=== PATIENT | female | born 1990 | race Caucasian/White ===

== ENCOUNTER 2018-05-10 07:51 | Emergency (ER) | payer MEDICAID ==
[2018-05-10] MEDS ORDERED: NACL 0.9% 500 ML 500 ML IV ONE (08:26)
[2018-05-10 08:54] LABS: Basophils % (Auto) 0.3 % (0.0-1.8); Eosinophils # (Auto) 0.2 K/mm3 (0.0-0.4); Eosinophils % (Auto) 1.6 % (0.0-4.3); Hematocrit 36.3 % (30.3-42.9); Hemoglobin 12.2 gm/dl (10.1-14.3); Lymphocytes # (Auto) 1.1 K/mm3 (1.2-5.4); Lymphocytes % (Auto) 10.5 % (13.4-35.0); Mean Corpuscular HGB Conc 34 % (30-34); Mean Corpuscular Volume 81 fl (79-97); Monocytes # (Auto) 0.6 K/mm3 (0.0-0.8); Monocytes % (Auto) 5.5 % (0.0-7.3); Platelet Count 339 K/mm3 (140-440); Red Cell Distribution Width 13.5 % (13.2-15.2)
[2018-05-10] MEDS ORDERED: NACL 0.9% 1000 ML 1,000 ML IV ONE (08:56)
--- NOTE | 2018-05-10 09:04 | Emergency Department Report ---
ED General Adult HPI - General Chief complaint: Arrhythmia/Palpitations Stated complaint: 22 WKS /CHEST PAIN/HIGH HEART RATE Time Seen by Provider: 05/10/18 08:36 Source: patient Mode of arrival: Ambulatory Limitations: No Limitations - History of Present Illness Initial comments: This is a 28-year-old female who came from [place] to visit family she states last Friday. She is about 22 weeks . She was told that she had gestational diabetes and I'll. She is not placed on medicine. She states that she was told that she had to get a "level II ultrasound". This is her first . Yesterday she developed shortness of breath. She felt like her heart was racing. She's only had occasional cough. She denies chest pain. She denies leg pain or swelling. She doesn't report any other symptoms. Patient denies being on any medicines or having any prior medical problems. -: Gradual, hour(s) Consistency: constant (heart racing not short of breath at the moment) Improves with: none Worsens with: none Associated Symptoms: denies other symptoms, fever/chills (possibly some chills), shortness of breath Treatments Prior to Arrival: none - Related Data Previous Rx's Medication Instructions Recorded Last Taken Type cefUROXime [Ceftin] 250 mg PO Q12H #14 tablet 05/10/18 Unknown Rx Allergies Allergy/AdvReac Type Severity Reaction Status Date / Time No Known Allergies Allergy Verified 05/10/18 08:39 ED Review of Systems ROS: Stated complaint: 22 WKS /CHEST PAIN/HIGH HEART RATE Other details as noted in HPI Constitutional: chills. denies: fever Eyes: denies: eye pain, eye discharge, vision change ENT: denies: ear pain, throat pain Respiratory: shortness of breath. denies: cough, wheezing Cardiovascular: palpitations (heart racing). denies: chest pain Endocrine: no symptoms reported Gastrointestinal: denies: abdominal pain, nausea, diarrhea Genitourinary: denies: urgency, dysuria, discharge Musculoskeletal: denies: back pain, joint swelling, arthralgia Skin: denies: rash, lesions Neurological: denies: headache, weakness, paresthesias Psychiatric: denies: anxiety, depression Hematological/Lymphatic: denies: easy bleeding, easy bruising ED Past Medical Hx - Past Medical History Hx Diabetes: Yes (GESTATION) - Surgical History Past Surgical History?: No - Social History Smoking Status: Never Smoker Substance Use Type: None - Medications Home Medications: Home Medications Medication Instructions Recorded Confirmed Last Taken Type cefUROXime [Ceftin] 250 mg PO Q12H #14 tablet 05/10/18 Unknown Rx ED Physical Exam - General Limitations: No Limitations General appearance: alert, in no apparent distress, obese - Head Head exam: Present: atraumatic, normocephalic - Eye Eye exam: Present: normal appearance. Absent: scleral icterus - ENT ENT exam: Present: mucous membranes moist - Neck Neck exam: Present: normal inspection. Absent: tenderness, meningismus - Respiratory Respiratory exam: Present: normal lung sounds bilaterally. Absent: respiratory distress - Cardiovascular Cardiovascular Exam: Present: regular rate, normal rhythm, tachycardia. Absent: systolic murmur, diastolic murmur, rubs, gallop - GI/Abdominal GI/Abdominal exam: Present: soft, distended (consistent with gestational age), normal bowel sounds. Absent: tenderness, guarding, rebound, rigid - Extremities Exam Extremities exam: Present: normal inspection, normal capillary refill. Absent: pedal edema, joint swelling, calf tenderness - Back Exam Back exam: Present: normal inspection. Absent: CVA tenderness (R), CVA tenderness (L) - Neurological Exam Neurological exam: Present: alert, oriented X3, CN II-XII intact. Absent: motor sensory deficit - Psychiatric Psychiatric exam: Present: normal affect, normal mood - Skin Skin exam: Present: warm, dry, intact, normal color. Absent: rash ED Course Vital Signs 05/10/18 05/10/18 05/10/18 08:13 08:16 08:30 Pulse Rate 118 H 124 H Respiratory 28 H 18 15 Rate Blood Pressure 131/89 136/85 O2 Sat by Pulse 96 97 Oximetry 05/10/18 05/10/18 05/10/18 08:46 09:00 09:48 Pulse Rate 105 H 119 H Respiratory 20 21 Rate Blood Pressure 136/85 136/85 133/88 O2 Sat by Pulse 98 98 97 Oximetry 05/10/18 05/10/18 05/10/18 10:00 10:15 10:30 Pulse Rate 112 H 111 H 114 H Respiratory 16 23 20 Rate Blood Pressure 117/70 131/85 118/78 O2 Sat by Pulse 98 98 97 Oximetry - Reevaluation(s) Reevaluation #1: I explained to this patient the need for chest x-ray. I explained to the differential diagnosis to include pulmonary embolism. She has mental capacity which appears to be normal. Now withstanding this, she continues to refuse chest x-ray. I have told her that she needs extensive workup of her shortness of breath and tachycardia and 22 week gestation. She is not cooperating with medical screening. I will discuss this with the transplant rn. 05/10/18 10:42 Reevaluation #2: I spoke with Dr. Ana Maria Taylor. We went over the patient's workup in progress so far. Dr. Taylor reiterates the need for a chest x-ray. She states that she is willing to admit the patient for further care and evaluation if she does have a chest x-ray. Otherwise, if she is refusing further workup, she recommends that the patient sign out AGAINST MEDICAL ADVICE. 05/10/18 11:26 Reevaluation #3: Patient declines further workup. She states that she would rather leave. She is going to sign out AGAINST MEDICAL ADVICE. Her urine is equivocal. However I will give her prescription for Ceftin. I will give her the name of the transplant rn action installer Dr. Talyor. We have discussed the case. Patient is well aware of that we have not excluded a variety of potentially life-threatening illnesses both to her and the fetus. She has adequate mental capacity to refuse further care. She has done so. 05/10/18 11:54 ED Medical Decision Making - Lab Data Result diagrams: 05/10/18 08:41 05/10/18 08:41 Laboratory Results - last 24 hr 05/10/18 05/10/18 05/10/18 08:41 08:41 08:41 WBC 10.2 RBC 4.50 Hgb 12.2 Hct 36.3 MCV 81 MCH 27 L MCHC 34 RDW 13.5 Plt Count 339 Lymph % (Auto) 10.5 L [place] % (Auto) 5.5 Eos % (Auto) 1.6 Baso % (Auto) 0.3 Lymph # 1.1 L [place] # 0.6 Eos # 0.2 Baso # 0.0 Seg Neutrophils % 82.1 H Seg Neutrophils # 8.4 H APTT 26.6 D-Dimer Sodium Potassium Chloride Carbon Dioxide Anion Gap BUN Creatinine Estimated GFR BUN/Creatinine Ratio Glucose Lactic Acid Uric Acid 5.2 Calcium Magnesium Total Bilirubin Direct Bilirubin Indirect Bilirubin AST ALT Alkaline Phosphatase Total Creatine Kinase CK-MB (CK-2) CK-MB (CK-2) Rel Index NT-Pro-B Natriuret Pep Total Protein Albumin Albumin/Globulin Ratio Lipase 13 TSH Free T4 05/10/18 05/10/18 05/10/18 08:41 08:41 08:41 WBC RBC Hgb Hct MCV MCH MCHC RDW Plt Count Lymph % (Auto) [place] % (Auto) Eos % (Auto) Baso % (Auto) Lymph # [place] # Eos # Baso # Seg Neutrophils % Seg Neutrophils # APTT D-Dimer 419.05 H Sodium 136 L Potassium 4.1 Chloride 101.2 Carbon Dioxide 18 L Anion Gap 21 BUN 6 L Creatinine 0.4 L Estimated GFR > 60 BUN/Creatinine Ratio 15 Glucose 124 H Lactic Acid Uric Acid Calcium 9.3 Magnesium 1.80 Total Bilirubin 0.20 Direct Bilirubin < 0.2 Indirect Bilirubin 0.0 AST 67 H ALT 28 Alkaline Phosphatase 71 Total Creatine Kinase 41 CK-MB (CK-2) < 1.0 CK-MB (CK-2) Rel Index 2.4 NT-Pro-B Natriuret Pep < 5 Total Protein 7.2 Albumin 3.7 L Albumin/Globulin Ratio 1.1 Lipase TSH 1.530 Free T4 0.86 05/10/18 09:04 WBC RBC Hgb Hct MCV MCH MCHC RDW Plt Count Lymph % (Auto) [place] % (Auto) Eos % (Auto) Baso % (Auto) Lymph # [place] # Eos # Baso # Seg Neutrophils % Seg Neutrophils # APTT D-Dimer Sodium Potassium Chloride Carbon Dioxide Anion Gap BUN Creatinine Estimated GFR BUN/Creatinine Ratio Glucose Lactic Acid 1.70 Uric Acid Calcium Magnesium Total Bilirubin Direct Bilirubin Indirect Bilirubin AST ALT Alkaline Phosphatase Total Creatine Kinase CK-MB (CK-2) CK-MB (CK-2) Rel Index NT-Pro-B Natriuret Pep Total Protein Albumin Albumin/Globulin Ratio Lipase TSH Free T4 Laboratory Results - last 24 hr 05/10/18 05/10/18 05/10/18 08:41 08:41 08:41 WBC 10.2 RBC 4.50 Hgb 12.2 Hct 36.3 MCV 81 MCH 27 L MCHC 34 RDW 13.5 Plt Count 339 Lymph % (Auto) 10.5 L [place] % (Auto) 5.5 Eos % (Auto) 1.6 Baso % (Auto) 0.3 Lymph # 1.1 L [place] # 0.6 Eos # 0.2 Baso # 0.0 Seg Neutrophils % 82.1 H Seg Neutrophils # 8.4 H APTT 26.6 D-Dimer Sodium Potassium Chloride Carbon Dioxide Anion Gap BUN Creatinine Estimated GFR BUN/Creatinine Ratio Glucose Lactic Acid Uric Acid 5.2 Calcium Magnesium Total Bilirubin Direct Bilirubin Indirect Bilirubin AST ALT Alkaline Phosphatase Total Creatine Kinase CK-MB (CK-2) CK-MB (CK-2) Rel Index NT-Pro-B Natriuret Pep Total Protein Albumin Albumin/Globulin Ratio Lipase 13 TSH Free T4 05/10/18 05/10/18 05/10/18 08:41 08:41 08:41 WBC RBC Hgb Hct MCV MCH MCHC RDW Plt Count Lymph % (Auto) [place] % (Auto) Eos % (Auto) Baso % (Auto) Lymph # [place] # Eos # Baso # Seg Neutrophils % Seg Neutrophils # APTT D-Dimer 419.05 H Sodium 136 L Potassium 4.1 Chloride 101.2 Carbon Dioxide 18 L Anion Gap 21 BUN 6 L Creatinine 0.4 L Estimated GFR > 60 BUN/Creatinine Ratio 15 Glucose 124 H Lactic Acid Uric Acid Calcium 9.3 Magnesium 1.80 Total Bilirubin 0.20 Direct Bilirubin < 0.2 Indirect Bilirubin 0.0 AST 67 H ALT 28 Alkaline Phosphatase 71 Total Creatine Kinase 41 CK-MB (CK-2) < 1.0 CK-MB (CK-2) Rel Index 2.4 NT-Pro-B Natriuret Pep < 5 Total Protein 7.2 Albumin 3.7 L Albumin/Globulin Ratio 1.1 Lipase TSH 1.530 Free T4 0.86 05/10/18 09:04 WBC RBC Hgb Hct MCV MCH MCHC RDW Plt Count Lymph % (Auto) [place] % (Auto) Eos % (Auto) Baso % (Auto) Lymph # [place] # Eos # Baso # Seg Neutrophils % Seg Neutrophils # APTT D-Dimer Sodium Potassium Chloride Carbon Dioxide Anion Gap BUN Creatinine Estimated GFR BUN/Creatinine Ratio Glucose Lactic Acid 1.70 Uric Acid Calcium Magnesium Total Bilirubin Direct Bilirubin Indirect Bilirubin AST ALT Alkaline Phosphatase Total Creatine Kinase CK-MB (CK-2) CK-MB (CK-2) Rel Index NT-Pro-B Natriuret Pep Total Protein Albumin Albumin/Globulin Ratio Lipase TSH Free T4 Laboratory Results - last 24 hr 05/10/18 05/10/18 05/10/18 08:41 08:41 08:41 WBC 10.2 RBC 4.50 Hgb 12.2 Hct 36.3 MCV 81 MCH 27 L MCHC 34 RDW 13.5 Plt Count 339 Lymph % (Auto) 10.5 L [place] % (Auto) 5.5 Eos % (Auto) 1.6 Baso % (Auto) 0.3 Lymph # 1.1 L [place] # 0.6 Eos # 0.2 Baso # 0.0 Seg Neutrophils % 82.1 H Seg Neutrophils # 8.4 H APTT 26.6 D-Dimer Sodium Potassium Chloride Carbon Dioxide Anion Gap BUN Creatinine Estimated GFR BUN/Creatinine Ratio Glucose Lactic Acid Uric Acid 5.2 Calcium Magnesium Total Bilirubin Direct Bilirubin Indirect Bilirubin AST ALT Alkaline Phosphatase Total Creatine Kinase CK-MB (CK-2) CK-MB (CK-2) Rel Index NT-Pro-B Natriuret Pep Total Protein Albumin Albumin/Globulin Ratio Lipase 13 TSH Free T4 Urine Bilirubin Urine RBC (Auto) U Epithel Cells (Auto) Urine Opiates Screen Urine Methadone Screen Ur Barbiturates Screen Ur Phencyclidine Scrn Ur Amphetamines Screen U Benzodiazepines Scrn Urine Cocaine Screen U Marijuana (THC) Screen 05/10/18 05/10/18 05/10/18 08:41 08:41 08:41 WBC RBC Hgb Hct MCV MCH MCHC RDW Plt Count Lymph % (Auto) [place] % (Auto) Eos % (Auto) Baso % (Auto) Lymph # [place] # Eos # Baso # Seg Neutrophils % Seg Neutrophils # APTT D-Dimer 419.05 H Sodium 136 L Potassium 4.1 Chloride 101.2 Carbon Dioxide 18 L Anion Gap 21 BUN 6 L Creatinine 0.4 L Estimated GFR > 60 BUN/Creatinine Ratio 15 Glucose 124 H Lactic Acid Uric Acid Calcium 9.3 Magnesium 1.80 Total Bilirubin 0.20 Direct Bilirubin < 0.2 Indirect Bilirubin 0.0 AST 67 H ALT 28 Alkaline Phosphatase 71 Total Creatine Kinase 41 CK-MB (CK-2) < 1.0 CK-MB (CK-2) Rel Index 2.4 NT-Pro-B Natriuret Pep < 5 Total Protein 7.2 Albumin 3.7 L Albumin/Globulin Ratio 1.1 Lipase TSH 1.530 Free T4 0.86 Urine Bilirubin Urine RBC (Auto) U Epithel Cells (Auto) Urine Opiates Screen Urine Methadone Screen Ur Barbiturates Screen Ur Phencyclidine Scrn Ur Amphetamines Screen U Benzodiazepines Scrn Urine Cocaine Screen U Marijuana (THC) Screen 05/10/18 05/10/18 05/10/18 09:04 11:19 Unknown WBC RBC Hgb Hct MCV MCH MCHC RDW Plt Count Lymph % (Auto) [place] % (Auto) Eos % (Auto) Baso % (Auto) Lymph # [place] # Eos # Baso # Seg Neutrophils % Seg Neutrophils # APTT D-Dimer Sodium Potassium Chloride Carbon Dioxide Anion Gap BUN Creatinine Estimated GFR BUN/Creatinine Ratio Glucose Lactic Acid 1.70 Uric Acid Calcium Magnesium Total Bilirubin Direct Bilirubin Indirect Bilirubin AST ALT Alkaline Phosphatase Total Creatine Kinase CK-MB (CK-2) CK-MB (CK-2) Rel Index NT-Pro-B Natriuret Pep Total Protein Albumin Albumin/Globulin Ratio Lipase TSH Free T4 Urine Bilirubin Neg Urine RBC (Auto) 5.0 U Epithel Cells (Auto) 6.0 Urine Opiates Screen Presumptive negative Urine Methadone Screen Presumptive negative Ur Barbiturates Screen Presumptive negative Ur Phencyclidine Scrn Presumptive negative Ur Amphetamines Screen Presumptive negative U Benzodiazepines Scrn Presumptive negative Urine Cocaine Screen Presumptive negative U Marijuana (THC) Screen Presumptive negative Laboratory Results - last 24 hr 05/10/18 05/10/18 05/10/18 08:41 08:41 08:41 WBC 10.2 RBC 4.50 Hgb 12.2 Hct 36.3 MCV 81 MCH 27 L MCHC 34 RDW 13.5 Plt Count 339 Lymph % (Auto) 10.5 L [place] % (Auto) 5.5 Eos % (Auto) 1.6 Baso % (Auto) 0.3 Lymph # 1.1 L [place] # 0.6 Eos # 0.2 Baso # 0.0 Seg Neutrophils % 82.1 H Seg Neutrophils # 8.4 H APTT 26.6 D-Dimer Sodium Potassium Chloride Carbon Dioxide Anion Gap BUN Creatinine Estimated GFR BUN/Creatinine Ratio Glucose Lactic Acid Uric Acid 5.2 Calcium Magnesium Total Bilirubin Direct Bilirubin Indirect Bilirubin AST ALT Alkaline Phosphatase Total Creatine Kinase CK-MB (CK-2) CK-MB (CK-2) Rel Index NT-Pro-B Natriuret Pep Total Protein Albumin Albumin/Globulin Ratio Lipase 13 TSH Free T4 Urine Color Urine Turbidity Urine pH Ur Specific [place] Urine Protein Urine Glucose (UA) Urine Ketones Urine Blood Urine Nitrite Urine Bilirubin Urine Urobilinogen Ur Leukocyte Esterase Urine WBC (Auto) Urine RBC (Auto) U Epithel Cells (Auto) Urine Bacteria (Auto) Urine Mucus Urine Opiates Screen Urine Methadone Screen Ur Barbiturates Screen Ur Phencyclidine Scrn Ur Amphetamines Screen U Benzodiazepines Scrn Urine Cocaine Screen U Marijuana (THC) Screen Drugs of Abuse Note 05/10/18 05/10/18 05/10/18 08:41 08:41 08:41 WBC RBC Hgb Hct MCV MCH MCHC RDW Plt Count Lymph % (Auto) [place] % (Auto) Eos % (Auto) Baso % (Auto) Lymph # [place] # Eos # Baso # Seg Neutrophils % Seg Neutrophils # APTT D-Dimer 419.05 H Sodium 136 L Potassium 4.1 Chloride 101.2 Carbon Dioxide 18 L Anion Gap 21 BUN 6 L Creatinine 0.4 L Estimated GFR > 60 BUN/Creatinine Ratio 15 Glucose 124 H Lactic Acid Uric Acid Calcium 9.3 Magnesium 1.80 Total Bilirubin 0.20 Direct Bilirubin < 0.2 Indirect Bilirubin 0.0 AST 67 H ALT 28 Alkaline Phosphatase 71 Total Creatine Kinase 41 CK-MB (CK-2) < 1.0 CK-MB (CK-2) Rel Index 2.4 NT-Pro-B Natriuret Pep < 5 Total Protein 7.2 Albumin 3.7 L Albumin/Globulin Ratio 1.1 Lipase TSH 1.530 Free T4 0.86 Urine Color Urine Turbidity Urine pH Ur Specific [place] Urine Protein Urine Glucose (UA) Urine Ketones Urine Blood Urine Nitrite Urine Bilirubin Urine Urobilinogen Ur Leukocyte Esterase Urine WBC (Auto) Urine RBC (Auto) U Epithel Cells (Auto) Urine Bacteria (Auto) Urine Mucus Urine Opiates Screen Urine Methadone Screen Ur Barbiturates Screen Ur Phencyclidine Scrn Ur Amphetamines Screen U Benzodiazepines Scrn Urine Cocaine Screen U Marijuana (THC) Screen Drugs of Abuse Note 05/10/18 05/10/18 05/10/18 09:04 11:19 Unknown WBC RBC Hgb Hct MCV MCH MCHC RDW Plt Count Lymph % (Auto) [place] % (Auto) Eos % (Auto) Baso % (Auto) Lymph # [place] # Eos # Baso # Seg Neutrophils % Seg Neutrophils # APTT D-Dimer Sodium Potassium Chloride Carbon Dioxide Anion Gap BUN Creatinine Estimated GFR BUN/Creatinine Ratio Glucose Lactic Acid 1.70 Uric Acid Calcium Magnesium Total Bilirubin Direct Bilirubin Indirect Bilirubin AST ALT Alkaline Phosphatase Total Creatine Kinase CK-MB (CK-2) CK-MB (CK-2) Rel Index NT-Pro-B Natriuret Pep Total Protein Albumin Albumin/Globulin Ratio Lipase TSH Free T4 Urine Color Yellow Urine Turbidity Clear Urine pH 5.0 Ur Specific [place] 1.018 Urine Protein <15 mg/dl Urine Glucose (UA) Neg Urine Ketones Tr Urine Blood Sm Urine Nitrite Neg Urine Bilirubin Neg Urine Urobilinogen < 2.0 Ur Leukocyte Esterase Sm Urine WBC (Auto) 4.0 Urine RBC (Auto) 5.0 U Epithel Cells (Auto) 6.0 Urine Bacteria (Auto) 2+ Urine Mucus Few Urine Opiates Screen Presumptive negative Urine Methadone Screen Presumptive negative Ur Barbiturates Screen Presumptive negative Ur Phencyclidine Scrn Presumptive negative Ur Amphetamines Screen Presumptive negative U Benzodiazepines Scrn Presumptive negative Urine Cocaine Screen Presumptive negative U Marijuana (THC) Screen Presumptive negative Drugs of Abuse Note Disclamer Critical care attestation.: If time is entered above; I have spent that time in minutes in the direct care of this critically ill patient, excluding procedure time. ED Disposition Clinical Impression: Tachycardia, 22 weeks gestation of Dyspnea Qualifiers: Dyspnea type: unspecified Qualified Code(s): R06.00 - Dyspnea, unspecified Disposition: DC- TO HOME OR SELFCARE Is pt being admited?: No Does the pt Need Aspirin: No Condition: Stable Instructions: (ED), Dyspnea (ED), Urinary Tract Infection in Women (ED) Additional Instructions: Your urine test showed a possible urine infection. I'm going to give you a prescription of an antibiotic. Return as desired for further evaluation. I would strongly recommend you see the transplant rn in her office as soon as possible. Prescriptions: cefUROXime [Ceftin] 250 mg PO Q12H #14 tablet Referrals: MELO WOODSON [Primary Care Provider] - 3-5 Days ANA MARIA TAYLOR MD [Staff Physician] - 24 Hours Forms: AMA Form Time of Disposition: 11:56
[2018-05-10 09:12] LABS: Uric Acid 5.2 mg/dL (3.5-7.6)
[2018-05-10 09:13] LABS: Alanine Aminotransferase 28 units/L (7-56); Albumin 3.7 g/dL (3.9-5); BUN/Creatinine Ratio 15; Blood Urea Nitrogen 6 mg/dL (7-17); Calcium 9.3 mg/dL (8.4-10.2); Creatine Kinase MB < 1.0 ng/mL (0.0-4.0); Hemolysis Index 6
[2018-05-10 09:14] LABS: Bilirubin,Direct < 0.2 mg/dL (0-0.2)
[2018-05-10 09:20] LABS: Free T4 (Free Thyroxine) 0.86 ng/dL (0.76-1.46)
[2018-05-10 10:36] VITALS: BP 118/78
[2018-05-10 11:44] LABS: Amphetamine Screen,Urine PRESUMPTIVE NEGATIVE; Benzodiazepines Screen,Urine PRESUMPTIVE NEGATIVE; Cannabinoid Screen,Urine PRESUMPTIVE NEGATIVE; Cocaine Screen,Urine PRESUMPTIVE NEGATIVE; Methadone Screen,Urine PRESUMPTIVE NEGATIVE; Opiate Screen,Urine PRESUMPTIVE NEGATIVE
[2018-05-10 11:46] LABS: Bacteria,Urine 2+ /HPF (Negative); Bilirubin,Urine NEG (Negative); Blood,Urine SM (Negative); Color,Urine Yellow (Yellow); Mucus,Urine FEW /HPF; Protein,Urine <15 mg/dL mg/dL (Negative); Urobilinogen,Urine < 2.0 mg/dL (<2.0)
== END 2018-05-10 12:52 | disposition home or self-care (01) ==
LOC: ED 07:51
DX: O26.892 Other specified pregnancy related conditions, second trimester (principal); R00.0 Tachycardia, unspecified; R06.00 Dyspnea, unspecified; Z3A.22 22 weeks gestation of pregnancy
CPT/HCPCS: 36415; 80048; 80076; 80307; 81001; 82140; 82550; 82553; 83690; 83735; 83880; 84439; 84443; 84550; 85025; 85379; 85730; 87040; 87086; 93005; 93010; 99283; J7030